=== PATIENT | female | born 1985 | race Caucasian/White ===

== ENCOUNTER 2019-01-11 09:42 | Emergency (ER) | payer BC, MEDICAID ==
--- NOTE | 2019-01-11 10:22 | ER Document Report ---
ED General - General Chief Complaint: Shortness Of Breath Stated Complaint: SHORTNESS OF BREATH Time Seen by Provider: 01/11/19 10:21 Primary Care Provider: OTIS DUNHAM PA-C [NO LOCAL MD] - Follow up as needed JAMES KAUR MD [ACTIVE STAFF] - Follow up in 3-5 days (or sooner if needed) JOSE ARMANDO KURTZ MD [ACTIVE STAFF] - Follow up in 3-5 days (follow-up Tachycardia. Mother has the same) Mode of Arrival: Ambulatory Information source: Patient TRAVEL OUTSIDE OF THE [place] IN LAST 30 DAYS: No - HPI Notes: Vitals stable, no distress presents for evaluation of chest pain radiating to left side, doubly states her heart early this morning, pain was 3 out of 10, worse with movement. Denies any recent trauma, not taking any oral medications, currently on her menstrual. Has not tried any [id number] medications for pain. No new travel, periods of immobilization, cancers, recent discharge surgery, is not on control, states father has a history of coronary artery disease has never had a history of CA as well as mother, patient has no personal history of retention, cardiac issues as well as renal issues. Does not have a primary care provider, has never been seen for her issues, denies history of tachycardia. Denies fevers, chills, chest pain,palpitations, dyspnea, nausea, vomiting, diarrhea, abdominal pain, hematuria,blurred vision, double vision, loss of vision, speech changes, LH, dizziness, syncope, headaches, wheezing, ST, URI, neck pain, weakness, bowel or bladder dysfunction, saddle anesthesia, numbness or tingling in bilateral upper or lower extremities equally, muscle paralysis, weakness in bilateral upper or lower extremities equally or rash. 01/11/19 14:39 - Related Data Allergies/Adverse Reactions: No Known Allergies Allergy (Verified 01/11/19 09:44) Past Medical History - General Information source: Patient - Social History Smoking Status: Never Smoker Chew tobacco use (# tins/day): No Frequency of alcohol use: Occasional Drug Abuse: None Family History: Reviewed & Not Pertinent Patient has suicidal ideation: No Patient has homicidal ideation: No Renal/ Medical History: Denies: Hx Peritoneal Dialysis Past Surgical History: Reports: Hx Orthopedic Surgery - left ACL reconstruction x2 Review of Systems - Review of Systems Constitutional: No symptoms reported EENT: No symptoms reported Cardiovascular: No symptoms reported Respiratory: See HPI Gastrointestinal: No symptoms reported Genitourinary: No symptoms reported Female Genitourinary: No symptoms reported Musculoskeletal: No symptoms reported Skin: No symptoms reported Hematologic/Lymphatic: No symptoms reported Neurological/Psychological: No symptoms reported Physical Exam - Vital signs Vitals: Temp Pulse Resp BP Pulse Ox 99.0 F 124 H 22 H 150/91 H 100 01/11/19 09:50 01/11/19 09:50 01/11/19 09:50 01/11/19 09:50 01/11/19 09:50 - Notes Notes: PHYSICAL EXAMINATION: GENERAL: Well-appearing, well-nourished and in no acute distress. HEAD: Atraumatic, normocephalic. EYES: Pupils equal round and reactive to light, extraocular movements intact, conjunctiva are normal. ENT: Nares patent, oropharynx clear without exudates. Moist mucous membranes. NECK: Normal range of motion, supple without lymphadenopathy LUNGS: Breath sounds clear to auscultation bilaterally and equal. No wheezes rales or rhonchi. HEART: Sinus tachycardia without murmurs ABDOMEN: Soft, nontender, nondistended abdomen. No guarding, no rebound. No masses appreciated. Female : deferred Musculoskeletal: Normal range of motion, no pitting or edema. No cyanosis. NEUROLOGICAL: Cranial nerves grossly intact. Normal speech, normal gait. Normal sensory, motor exams PSYCH: Normal mood, normal affect. SKIN: Warm, Dry, normal turgor, no rashes or lesions noted. Course - Re-evaluation Re-evalutation: Afebrile, tachycardia which has become reduced with IV fluids from 125 down to 100, CT negative for PE or AA, pneumonia. First set troponin negative, CMP unremarkable, urinalysis does show hematuria however patient is on her menstrual cycle. Due to patient having a tachycardia patient weeks does fall into the PERC rule patient remains afebrile, CK within normal range. HR reduced to 101, sinus tachycardia with IV fluids. Blood pressures remained stable. She has remained afebrile, in no distress aside from slight tachycardia. awaiting second tropinion, while awaitinf or lab results. Pt had chest pain at 1540, nitrate 0.4mg SL given, pt had complete chest pain relief after nitro SL and remains tachycardia. Initiated admission for observation telemetry to medical service with BETTY Irizarry at 1545. BETTY Coyne, stated "I will be down in a couple of hours to check on her to see if she can be admitted". Patient remains tachycar dic. Dr. Miguelito Ingram MD, hospitalist, does not feel the patient is being admitted due to laboratory diagnostic findings being unremarkable. Per report of patient, stated that this was likely related to tachycardia and will give her a referral to a practice professional. After nitro sublingual. this provider feels that patient having complete chest pain relief after taking sublingual 0.4 nitro does require admission however hospitalist does not feel that this is necessary, hospitalist will discharge patient home on his own time the rash discussed with patient that if she experiences any chest pain, fever, shortness of breath, abdominal pain, numbness or tingling down her arms or legs, speech changes, confusion, severe headache, etc. to return to the ED immediately. Patient verbalized understanding of this plan of care and agree with plan of care. 01/11/19 18:31 This provider if he has a tachycardia has - Vital Signs Vital signs: Temp Pulse Resp BP Pulse Ox 99.0 F 124 H 21 H 117/72 99 01/11/19 09:50 01/11/19 09:50 01/11/19 16:01 01/11/19 16:00 01/11/19 16:01 - Laboratory Result Diagrams: 01/11/19 11:11 01/11/19 11:11 Laboratory results interpreted by me: 01/11/19 01/11/19 11:11 11:53 Calcium 10.3 H Urine Blood MODERATE H - EKG Interpretation by Me Rate: Tachycardia Rhythm: NSR Discharge - Discharge Clinical Impression: Tachycardia, Unstable angina with relief from nitro Condition: Stable Disposition: ADMITTED OBSERVATION Admitting Provider: Hospitalist - Dr. Lauren Coyne Unit Admitted: Telemetry Instructions: Sinus Tachycardia ([facility]) Additional Instructions: take metoprolol as directed. Continue aspirin daily Consider zantac or omeprazole daily Prescriptions: Metoprolol Succinate [Toprol Xl 25 mg Tab.sr] 25 mg PO DAILY #30 tab.sr.24h Referrals: OTIS DUNHAM PA-C [NO LOCAL MD] - Follow up as needed JAMES KAUR MD [ACTIVE STAFF] - Follow up in 3-5 days (or sooner if needed) JOSE ARMANDO KURTZ MD [ACTIVE STAFF] - Follow up in 3-5 days (follow-up Tachycardia. Mother has the same)
[2019-01-11] MEDS ORDERED: NORMAL SALINE 1000 ML 1,000 ML IV ONE (10:54)
[2019-01-11] MEDS ORDERED: ASPIRIN 81 MG TABLET, CHEWABLE PO ONE (10:54)
[2019-01-11 11:33] LABS: ABSOLUTE EOSINOPHILS # (AUTO) 0.1 10^3/uL (0.0-0.6); ABSOLUTE LYMPHOCYTES (AUTO) 1.3 10^3/uL (0.5-4.7); ABSOLUTE MONOCYTES (AUTO) 0.4 10^3/uL (0.1-1.4); ABSOLUTE NEUT (AUTO) 4.3 10^3/uL (1.7-8.2); BASOPHILS % (AUTO) 0.4 % (0-2); EOSINOPHILS % (AUTO) 1.7 % (0-6); HEMATOCRIT 39.1 % (36.0-47.0); HEMOGLOBIN 13.8 g/dL (12.0-15.5); LYMPHOCYTES % (AUTO) 21.5 % (13-45); MEAN CORPUSCULAR HEMOGLOBIN 30.9 pg (27.0-33.4); MEAN CORPUSCULAR HGB CONC 35.2 g/dL (32.0-36.0); MEAN CORPUSCULAR VOLUME 88 fl (80-97); MONOCYTES % (AUTO) 6.5 % (3-13); PLATELET COUNT 272 10^3/uL (150-450); RED BLOOD COUNT 4.46 10^6/uL (3.72-5.28); RED CELL DISTRIBUTION WIDTH 12.3 % (11.5-14.0); SEGMENTED NEUTROPHILS % (AUTO) 69.9 % (42-78); TOTAL CELLS COUNTED % (AUTO) 100 %; WHITE BLOOD COUNT 6.1 10^3/uL (4.0-10.5)
[2019-01-11 11:54] LABS: ALANINE AMINOTRANSFERASE 30 U/L (9-52); ALKALINE PHOSPHATASE 90 U/L (38-126); ANION GAP 11 (5-19); ASPARTATE AMINO TRANSFERASE 24 U/L (14-36); BILIRUBIN,DIRECT 0.2 mg/dL (0.0-0.4); BILIRUBIN,TOTAL 0.8 mg/dL (0.2-1.3); BLOOD UREA NITROGEN 12 mg/dL (7-20); CALCIUM 10.3 mg/dL (8.4-10.2); CARBON DIOXIDE 25 mmol/L (22-30); CHLORIDE 107 mmol/L (98-107); CREATINE KINASE 55 U/L (30-135); GLUCOSE 104 mg/dL (75-110); POTASSIUM 4.4 mmol/L (3.6-5.0); SODIUM 142.7 mmol/L (137-145); TOTAL PROTEIN 7.8 g/dL (6.3-8.2)
[2019-01-11 12:05] LABS: CREATINE KINASE MB 0.47 ng/mL (<4.55)
[2019-01-11 12:11] LABS: TROPONIN I < 0.012 ng/mL
[2019-01-11 12:14] LABS: APPEARANCE,URINE CLEAR; BILIRUBIN,URINE NEGATIVE (NEGATIVE); COLOR,URINE STRAW; GLUCOSE, URINE NEGATIVE (NEGATIVE); KETONES,URINE NEGATIVE (NEGATIVE); LEUKOCYTE ESTERASE,URINE NEGATIVE (NEGATIVE); NITRITE,URINE NEGATIVE (NEGATIVE); PROTEIN,URINE NEGATIVE (NEGATIVE); URINE SPECIFIC GRAVITY 1.006; UROBILINOGEN,URINE NEGATIVE mg/dL (<2.0)
--- NOTE | 2019-01-11 13:02 | RADIOLOGY REPORT (SQ) ---
EXAM DESCRIPTION: CT CHEST WITH COMPLETED DATE/TIME: 01/11/2019 12:49 pm REASON FOR STUDY: sob w/ CP, tachy, sudden onset COMPARISON: None. TECHNIQUE: CT scan of the chest performed using helical scanning technique with dynamic intravenous contrast injection. Images reviewed with lung, soft tissue and bone windows. Reconstructed coronal and sagittal MPR and MIP images reviewed. All images stored on PACS. All CT scanners at this facility use dose modulation, iterative reconstruction, and/or weight based d osing when appropriate to reduce radiation dose to as low as reasonably achievable (ALARA). [facility]: Dose Right [facility]: CareDose [facility]: Dose Right [facility]: Teradose 4D [facility]: TeamStreamz CONTRAST TYPE AND DOSE: contrast/concentration: Isovue 350.00 mg/ml; Total Contrast Delivered: 80.0 ml; Total Saline Delivered: 49.9 ml RENAL FUNCTION: None required. The patient is less than 50 years old. RADIATION DOSE: CT Rad equipment meets quality standard of care and radiation dose reduction techniq ues were employed. CTDIvol: 10.4 mGy. DLP: 384 mGy-cm. . LIMITATIONS: None. FINDINGS: LUNGS AND PLEURA: No opacities, nodules, masses. No pneumothorax. No effusions. HILAR AND MEDIASTINAL STRUCTURES: No identified masses or abnormal nodes. HEART AND VASCULAR STRUCTURES: No aneurysm or dissection. No central pulmonary emboli. No pericardi al effusion. HARDWARE: None in the chest. UPPER ABDOMEN: No significant findings. Limited exam. THYROID AND OTHER SOFT TISSUES: No masses. No adenopathy. BONES: Pectus deformity. No acute findings. OTHER: No other significant finding. IMPRESSION: No acute findings in the chest. TECHNICAL DOCUMENTATION: JOB ID: [id number] Quality ID # [id number]: Final reports with documentation of one or more dose reduction techniques (e.g., Au tomated exposure control, adjustment of the mA and/or kV according to patient size, use of iterative reconstruction technique) 2010 [employer]- All Rights Reserved Reading location - IP/workstation name: [email or web address]
[2019-01-11] MEDS ORDERED: NORMAL SALINE 1000 ML 1,000 ML IV PRN (13:49)
[2019-01-11] MEDS ORDERED: NITROGLYCERIN 0.4 MG/TAB 25 TAB/BOTTLE SL ONE (14:18)
[2019-01-11 15:39] LABS: CREATINE KINASE MB 0.37 ng/mL (<4.55)
[2019-01-11 15:40] LABS: TROPONIN I < 0.012 ng/mL
--- NOTE | 2019-01-11 18:12 | EKG REPORT ---
SEVERITY:- OTHERWISE NORMAL ECG - SINUS TACHYCARDIA : Confirmed by: Lynda Perla MD 11-Jan-2019 18:12:07
[2019-01-11 18:30] VITALS: BP 117/76
[2019-01-11] MEDS ORDERED: METOPROLOL SUCCINATE 25 MG TAB.SR.24H PO ONE (19:00)
--- NOTE | 2019-01-11 20:08 | PDOC CONSULTATION ---
Consultation Consult Date: 01/11/19 Attending physician:: MYRNA BAJWA Consult reason:: chest pain History of Present Illness Admission Date/PCP: January 11, 2019 The patient is without a primary care provider Patient complains of: Chest pain History of Present Illness: FRANCES CÁRDENAS is a 33 year old female who experienced substernal discomfort early this morning. It radiated to her neck. It did not radiate to her arms. It gave her a full sensation in her chest. She felt cold but she always feels cold. She did have some shaking. She noted that her heart was racing. This does happen in the past. It comes and goes. She had a similar episode several months ago. During the episode she was not diaphoretic. She felt nauseated briefly but there was no vomiting. The nausea resolved quickly as well. By the time she presented to the emergency department she was asymptomatic. During her stay in the emergency department she began to get the symptoms back. She was given a sublingual nitroglycerin tablet. She states that this gave her some relief. She does have history of gastroesophageal reflux disease. She also stopped drinking all caffeinated drinks approximately 3 days ago. She has had an intermittent headache. Her first 2 troponin studies were less than 0.012. EKG showed sinus tachycardia. She was referred to the hospitalist for admission. Past Medical History Cardiac Medical History: Denies: Atrial Fibrillation, Coronary Artery Disease, Hypertension, Heart Murmur Pulmonary Medical History: Denies: Asthma, Chronic Obstructive Pulmonary Disease (COPD), Intubation, Respiratory Failure, Sleep Apnea EENT Medical History: Denies: Eyes, Ears, Nose, Throat Neurological Medical History: Denies: Hemorrhagic CVA, Ischemic CVA, Migraine Endocrine Medical History: Reports: None Renal/ Medical History: Reports: None Malignancy Medical History: Reports: None GI Medical History: Reports: Gastroesophageal Reflux Disease Musculoskeltal Medical History: Reports: Other - Left knee pain Skin Medical History: Reports: None Psychiatric Medical History: Denies: Alcohol Dependency, Depression, General Anxiety Disorder, Personality Disorder, Substance Abuse, Tobacco Dependency Traumatic Medical History: Reports: None Hematology: Reports: None Infectious Medical History: Reports: None Past Surgical History Past Surgical History: Reports: Orthopedic Surgery - left ACL reconstruction x2 Social History Information Source: Patient Occupation: Patient is and has 2 children. One boy and one girl. All are well. She is a supervisor public health nursing. Lives with: Family Smoking Status: Never Smoker Frequency of Alcohol Use: Occasional Hx Recreational Drug Use: No Drugs: None Hx Prescription Drug Abuse: No - Advance Directive Resuscitation Status: Full Code Surrogate healthcare decision maker:: No dedicated healthcare proxy documentation. Her and/or mother would be the preferred decision makers. Family History Family History: CAD - Father with several coronary artery stents, Other - Mother has intermittent tachycardia. Parental Family History Reviewed: Yes Children Family History Reviewed: Yes Sibling(s) Family History Reviewed.: Yes Medication/Allergy Home Medications: Aspirin [Aspirin 81 mg Chewable Tablet] 1 tab PO DAILY 01/11/19 Metoprolol Succinate [Toprol Xl 25 mg Tab.sr] 25 mg PO DAILY #30 tab.sr.24h 01/11/19 Allergies/Adverse Reactions: No Known Allergies Allergy (Verified 01/11/19 09:44) Review of Systems Constitutional: PRESENT: headache(s). ABSENT: anorexia, chills, night sweats, weight gain, weight loss Eyes: ABSENT: visual disturbances Ears: ABSENT: hearing changes Nose, Mouth, and Throat: PRESENT: headache(s) - Over the last day or 2. ABSENT: mouth pain, sore throat Cardiovascular: PRESENT: chest pain, palpitations. ABSENT: dyspnea on exertion, edema, orthropnea Respiratory: ABSENT: cough, dyspnea, hemoptysis Gastrointestinal: PRESENT: heartburn, nausea - Earlier today. ABSENT: abdominal pain, bloating, coffee ground emesis, constipation, vomiting Genitourinary: ABSENT: difficulty urinating, dysuria, hematuria Musculoskeletal: ABSENT: back pain, deformity, joint swelling Integumentary: ABSENT: diaphoresis, lesions, rash Neurological: ABSENT: abnormal gait, abnormal movements, abnormal speech, confusion, numbness, paresthesias, syncope Psychiatric: ABSENT: anxiety, depression, hallucinations Endocrine: ABSENT: cold intolerance, heat intolerance, menstrual abnormalities Hematologic/Lymphatic: ABSENT: easy bruising, lymphadenopathy Allergic/Immunologic: ABSENT: seasonal rhinorrhea Physical Exam Vital Signs: Temp Pulse Resp BP Pulse Ox 99.0 F 124 H 21 H 117/72 99 01/11/19 09:50 01/11/19 09:50 01/11/19 16:01 01/11/19 16:00 01/11/19 16:01 Intake & Output 01/10/19 01/11/19 01/12/19 06:59 06:59 06:59 Intake Total 1000 Balance 1000 Weight 86.2 kg General appearance: PRESENT: no acute distress, cooperative, well-developed Head exam: PRESENT: atraumatic, normocephalic Eye exam: PRESENT: conjunctiva pink, EOMI. ABSENT: scleral icterus Ear exam: PRESENT: normal external ear exam Mouth exam: PRESENT: moist, neck supple, tongue midline Teeth exam: ABSENT: dental caries, dental tenderness Neck exam: PRESENT: full ROM. ABSENT: carotid bruit, lymphadenopathy Respiratory exam: PRESENT: clear to auscultation natalee, symmetrical, unlabored. ABSENT: accessory muscle use, rales, rhonchi, wheezes Cardiovascular exam: PRESENT: RRR, +S1, +S2 Pulses: PRESENT: normal radial pulses, normal dorsalis pedis pul Vascular exam: ABSENT: pallor GI/Abdominal exam: PRESENT: normal bowel sounds, soft. ABSENT: distended, guarding, tenderness Rectal exam: PRESENT: deferred Gentrourinary exam: ABSENT: indwelling catheter Extremities exam: ABSENT: calf tenderness, pedal edema Musculoskeletal exam: PRESENT: ambulatory, normal inspection Neurological exam: PRESENT: alert, awake, oriented to person, oriented to place, oriented to time, oriented to situation, CN II-XII grossly intact. ABSENT: ataxia, motor sensory deficit Psychiatric exam: PRESENT: appropriate affect, normal mood. ABSENT: agitated, anxious Focused psych exam: ABSENT: delusional, restlessness Skin exam: PRESENT: dry, normal color, warm. ABSENT: abrasion, rash Results Laboratory Results: 01/11/19 11:11 01/11/19 11:11 01/11/19 01/11/19 01/11/19 11:11 11:11 11:53 WBC 6.1 RBC 4.46 Hgb 13.8 Hct 39.1 MCV 88 MCH 30.9 MCHC 35.2 RDW 12.3 Plt Count 272 Seg Neutrophils % 69.9 Lymphocytes % 21.5 Monocytes % 6.5 Eosinophils % 1.7 Basophils % 0.4 Absolute Neutrophils 4.3 Absolute Lymphocytes 1.3 Absolute Monocytes 0.4 Absolute Eosinophils 0.1 Absolute Basophils 0.0 Sodium 142.7 Potassium 4.4 Chloride 107 Carbon Dioxide 25 Anion Gap 11 BUN 12 Creatinine 0.69 Est GFR ( Amer) > 60 Est GFR (Non-Af Amer) > 60 Glucose 104 Calcium 10.3 H Total Bilirubin 0.8 AST 24 ALT 30 Alkaline Phosphatase 90 Total Protein 7.8 Albumin 5.0 Urine Color STRAW Urine Appearance CLEAR Urine pH 6.0 Ur Specific [place] 1.006 Urine Protein NEGATIVE Urine Glucose (UA) NEGATIVE Urine Ketones NEGATIVE Urine Blood MODERATE H Urine Nitrite NEGATIVE Ur Leukocyte Esterase NEGATIVE Urine WBC (Auto) 1 Urine RBC (Auto) 1 01/11/19 01/11/19 01/11/19 11:11 11:11 14:44 Creatine Kinase 55 CK-MB (CK-2) 0.47 0.37 Troponin I < 0.012 < 0.012 Impressions: Chest CT 01/11/19 10:52 IMPRESSION: No acute findings in the chest. Assessment & Plan - Diagnosis (1) Chest pain Qualifiers: Chest pain type: other chest pain Qualified Code(s): R07.89 - Other chest pain; R07.8 - Other chest pain Is this a current diagnosis for this admission?: Yes Plan: I had a long discussion with the patient. The patient has 2- troponins as well as an EKG only notable for tachycardia. The resolution of her chest pain has nothing to do with the nitroglycerin except that it can help relax the esophagus. I explained to the patient that my concern for a true cardiac issue is minimal. I did ask her to follow-up with cardiology as an outpatient. She needs to establish with a primary care physician as well. The mainstay of her treatment will be for her acid reflux as well as stress reduction, exercise and weight loss. Encouraged her to continue her aspirin daily as well. (2) Tachycardia Is this a current diagnosis for this admission?: Yes Plan: This in fact sounds like exactly what the patient's mother has. She has been fine with the use of beta-blockers. For that reason I will start the patient on metoprolol succinate 25 mg daily. She was given a dose in the emergency department prior to discharge. After her follow-up with cardiology I strongly encouraged her to establish with a primary care provider. She needs to avoid caffeine. I would also suggest avoiding nonsteroidal anti-inflammatory drugs. Encouraged weight loss and exercise. (3) Gastroesophageal reflux disease Qualifiers: Esophagitis presence: without esophagitis Qualified Code(s): K21.9 - Gastro-esophageal reflux disease without esophagitis Is this a current diagnosis for this admission?: Yes Plan: She currently uses Tums on an as-needed basis. I suggested that she try a daily dose of either an H2 jonathon such as Zantac or Pepcid or a proton pump inhibitor such as Prilosec. Avoiding caffeine will also help. - Time Time Spent: 50 to 70 Minutes Medications reviewed and adjusted accordingly: Yes Anticipated discharge: Home Within: within 24 hours - Plan Summary Plan Summary: I explained to the patient that it is perfectly safe for her to go home. Risk of true cardiac disease is minimal. She will follow-up with cardiology likely for a single visit. She should continue the metoprolol as ordered. She should also continue aspirin therapy and consider daily dose of medicine for her reflux.
== END 2019-01-11 18:44 | disposition admitted as inpatient to this hospital (09) ==
LOC: ER 09:42
DX: R00.0 Tachycardia, unspecified (principal); I20.0 Unstable angina; R06.02 Shortness of breath; R07.9 Chest pain, unspecified
CPT/HCPCS: 93005; 99285; 96360; 96361; 36415; 82553; 82550; 85025; 81025; 80053; 81001; 84484; 71260; 93010; J7030